=== PATIENT | male | born 1955 ===

== ENCOUNTER 2021-06-07 06:15 | Day surgery (SDC) | payer OTHER ==
[2021-06-07] MEDS ORDERED: PERCOCET 5-3251 EACH PO (15:57)
== END 2021-06-07 18:50 | disposition home or self-care (01) ==
LOC: CIR.AMB 06:15
PROVIDERS: ATTEND Surgery
DX: N52.01 Erectile dysfunction due to arterial insufficiency (principal); N47.1 Phimosis; Z20.822 Contact with and (suspected) exposure to COVID-19
CPT/HCPCS: 54405; C1813; 54161